=== PATIENT | female | born 1995 | race Caucasian/White ===

== ENCOUNTER 2016-11-03 11:55 | Emergency (ER) | payer OTHER ==
[2016-11-03 13:16] LABS: HEMOGLOBIN 10.8 gm/dl (12.3-15.3); RED BLOOD COUNT 4.35 M/UL (4.00-5.10)
[2016-11-03 13:36] LABS: BUN/CREATININE RATIO 17 (0-10)
== END 2016-11-03 18:00 | disposition home or self-care (01) ==
LOC: ER1 11:55
PROVIDERS: Family Medicine
DX: I88.0 Nonspecific mesenteric lymphadenitis (principal); K52.9 Noninfective gastroenteritis and colitis, unspecified; G43.909 Migraine, unspecified, not intractable, without status migrainosus; D64.9 Anemia, unspecified; Z79.899 Other long term (current) drug therapy
CPT/HCPCS: 36415; 80053; 81001; 82150; 83690; 84703; 85025; 96374; 96375; 99284; J2270; J2405; J7050; Q9962

== ENCOUNTER → 2020-10-28 | Outpatient (CLI) | payer OTHER | LOC: KOH-I 10:16 | DX: M54.9 Dorsalgia, unspecified (principal); M25.551 Pain in right hip; M25.552 Pain in left hip | CPT/HCPCS: 72110; 73522 ==